=== PATIENT | female | born 1990 | race Asian ===

== ENCOUNTER 2017-12-12 17:40 | Emergency (ER) | payer OTHER ==
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
[2017-12-12 19:22] VITALS: BP 121/74
== END 2017-12-12 19:20 | disposition home or self-care (01) ==
DX: S16.1XXA Strain of muscle, fascia and tendon at neck level, initial encounter (principal); V49.49XA Driver injured in collision with other motor vehicles in traffic accident, initial encounter; Y92.410 Unspecified street and highway as the place of occurrence of the external cause; Y99.8 Other external cause status; Y93.89 Activity, other specified

== ENCOUNTER 2017-12-14 19:49 | Emergency (ER) | payer MEDICAID, OTHER ==
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
[2017-12-14 23:57] VITALS: BP 102/60
== END 2017-12-14 22:50 | disposition home or self-care (01) ==
LOC: EEVIPCON 19:49
DX: T74.21XA Adult sexual abuse, confirmed, initial encounter (principal); Y07.59 Other non-family member, perpetrator of maltreatment and neglect; Y92.89 Other specified places as the place of occurrence of the external cause